=== PATIENT | female | born 1990 | race Caucasian/White ===

== ENCOUNTER 2022-06-12 11:02 | Outpatient (CLI) | payer OTHER, SELFPAY ==
[2022-06-12 21:23] LABS: Albumin* 5.1 g/dL (3.3-5.0)
[2022-06-12 21:24] LABS: Chloride* 100 mmol/L (96-114); Potassium* 4.8 mmol/L (3.6-5.1); Sodium* 136 mmol/L (135-149)
[2022-06-12 21:26] LABS: Amylase* 71 U/L (18-89); Bilirubin Total* 1.2 mg/dL (0.1-1.5); Carbon Dioxide* 23 mmol/L (20-32); Creatinine* 0.6 mg/dL (0.5-1.5); Estimated Glomerular Filt Rate 123 ml/min; Total Protein* 8.3 g/dL (6.0-8.3)
[2022-06-12 21:27] LABS: Alanine Aminotransferase* 20 U/L (4-35); Alkaline Phosphatase* 61 U/L (40-150); Aspartate Amino Transferase* 27 U/L (12-35); Blood Urea Nitrogen* 13 mg/dL (5-24); Calcium* 9.9 mg/dL (8.4-10.6); Cholesterol* 194 mg/dL (90-199); Glucose* 70 mg/dL (60-115); HDL Cholesterol* 78 mg/dL (>=50); Lipase* 107 U/L (23-300)
[2022-06-12 21:28] LABS: LDL Cholesterol Calculated 104 mg/dL (<100); Triglycerides* 62 mg/dL (40-149)
[2022-06-12 22:03] LABS: TSH With Reflex to FT4* 0.602 uIU/mL (0.270-4.200)
[2022-06-14 12:45] LABS: Immunoglobulin A 185 mg/dL (68-408)
[2022-06-15 01:43] LABS: Tissue Transglutaminase IgA <2 U/mL (0-3)
== END 2022-06-12 11:03 | disposition home or self-care (01) ==
PROVIDERS: PCP Family Medicine; Visit Provider Family Medicine
DX: Z01.419 Encounter for gynecological examination (general) (routine) without abnormal findings (principal); G89.29 Other chronic pain; I10 Essential (primary) hypertension; R10.9 Unspecified abdominal pain; R53.83 Other fatigue; Z13.6 Encounter for screening for cardiovascular disorders
CPT/HCPCS: 80053; 80061; 82150; 82784; 83690; 83735; 84443; 86364; 87086

== ENCOUNTER 2022-06-13 15:34 | Outpatient (CLI) | payer OTHER, SELFPAY ==
--- NOTE | 2022-06-13 16:00 | CRLHL7_ITS ---
For Patients: As a result of the Century Cures Act, medical imaging exams and procedure reports are released immediately into your electronic medical record. You may view this report before your referring provider. If you have questions, please contact your health care provider. CLINICAL HISTORY: Abdominal pain FINDINGS: Sonographic imaging demonstrates normal size and uniform echotexture of the liver. The spleen is of normal size. The pancreas appears normal. The proximal abdominal aorta and IVC appear normal. There is no evidence of ascites. The gallbladder is of normal size and there is no evidence of sludge or stones within the gallbladder lumen. The gallbladder wall measures 2 mm in thickness. The common bile duct measures 3 mm in size within the carolann hepatis. The kidneys appear symmetric. The right kidney measures 9.4 cm in length and the left kidney measures 9.4 cm. There is no evidence of a renal calculus or hydronephrosis. IMPRESSION: Unremarkable abdominal ultrasound. Dictated by Valeria Garza MD @ 06/13/2022 7:20:55 PM (Electronically Signed)
== END 2022-06-13 15:35 | disposition home or self-care (01) ==
PROVIDERS: PCP Family Medicine; Visit Provider Family Medicine
DX: R10.9 Unspecified abdominal pain (principal)
CPT/HCPCS: 76700

== ENCOUNTER 2022-07-12 15:40 | Outpatient (CLI) | payer OTHER, SELFPAY ==
--- NOTE | 2022-07-12 16:00 | CRLHL7_ITS ---
For Patients: As a result of the Century Cures Act, medical imaging exams and procedure reports are released immediately into your electronic medical record. You may view this report before your referring provider. If you have questions, please contact your health care provider. INDICATION: Abdominal pain, history of ovarian cysts. COMPARISON: None. TECHNIQUE: 2D basilio scale and color Doppler images were acquired of the pelvis using a transabdominal and transvaginal approach. FINDINGS: Sonographic images demonstrate a normal size and smooth outer contour of the uterus. The uterus is anteverted in position. The uterus measures 9.6 cm in length by 4.5 cm in AP diameter by 5.7 cm in transverse dimension. The myometrium has uniform echotexture. The endometrial lining measures 15 mm in composite thickness. The right ovary measures 4.4 x 3.3 x 3.5 cm in size and the left ovary measures 2.7 x 1.8 x 1.8 cm in size. The ovaries demonstrate normal arterial and venous blood flow on color Doppler analysis. There is a 3.2 x 3.0 x 3.3 cm complex cystic lesion in the right ovary containing lace-like echoes with no internal vascularity. This most likely represents a hemorrhagic cyst. No free fluid in the cul-de-sac. IMPRESSION: 3.2 cm hemorrhagic cyst in the right ovary. Consider ultrasound follow-up in 6-12 weeks to ensure resolution. Dictated by Hafsa Szymanski MD @ 07/12/2022 9:07:33 PM (Electronically Signed)
== END 2022-07-12 15:41 | disposition home or self-care (01) ==
LOC: US 15:41
PROVIDERS: PCP Family Medicine; Visit Provider Family Medicine
DX: R10.9 Unspecified abdominal pain (principal); N83.201 Unspecified ovarian cyst, right side
CPT/HCPCS: 76830; 76856; 93976